=== PATIENT | male | born 1970 | race Caucasian/White ===

== ENCOUNTER 2016-12-24 11:48 | Emergency (ER) | payer BC ==
[~2016-12-24] VITALS: Ht 177.8 cm; Wt 88.5 kg
[2016-12-24] MEDS ORDERED: IV RINGERS,LACTATED 1000ML 1,000 ML IV SCH (12:10)
[2016-12-24] MEDS ORDERED: HYDROmorphone 2 MG/ML VIAL IV/SQ PRN (12:15)
[2016-12-24] MEDS ORDERED: KETOROLAC 15 MG/ML VIAL. IV ONE (12:15)
--- NOTE | 2016-12-24 12:26 | ED.ADGEN ---
Past Medical History Past Medical History: Hypertension Additional Past Medical Histor: kidney stone Past Surgical History: No Surgical History Alcohol Use: Rarely Drug Use: None Adult General Chief Complaint Chief Complaint: FLANK PAIN HPI HPI Patient is a 46 year old man, history of hypertension, renal calculi, who passed a kidney stone one year ago, who presents to the emergency department with complaint of 2 days of right flank pain that is now associated right right abdominal pain. Patient denies any pain with urination, any hematuria. Denies any fevers or chills, complains of nausea but no vomiting. States the pain is waxing and waning, sharp and cramping, did use a single dose ibuprofen shortly before coming to the ED. Currently pain is coming and going in waves as stated. Denies any injuries, any chest pain or shortness of breath, any weakness in this or tingling, states that the symptoms he is experiencing currently are the same that he experienced last year when he passed a kidney stone. He states he did not seek medical evaluation during that episode, passed a stone in his urine. Review of Systems Review of Systems Constitutional: Denies fever or chills. [] Eyes: Denies change in visual acuity. [] HENT: Denies nasal congestion or sore throat. [] Respiratory: Denies cough or shortness of breath. [] Cardiovascular: Denies chest pain or edema. [] GI: Right flank pain now progressing to right-sided abdominal pain. : Denies dysuria. [] Musculoskeletal: Denies back pain or joint pain. [] Integument: Denies rash. [] Neurologic: Denies headache, focal weakness or sensory changes. [] Endocrine: Denies polyuria or polydipsia. [] Lymphatic: Denies swollen glands. [] Psychiatric: Denies depression or anxiety. [] Current Medications Current Medications Current Medications Medications (Trade) Dose Ordered Sig/Ender Start Time Stop Time Status Last Admin Dose Admin Ciprofloxacin (Cipro) 500 mg 1X ONCE 12/24/16 15:00 12/24/16 15:01 DC 12/24/16 15:08 500 MG Hydromorphone HCl (Dilaudid) 0.5 mg PRN Q15MIN PRN 12/24/16 12:15 12/24/16 15:31 DC 12/24/16 13:09 0.5 MG Ketorolac Tromethamine (Toradol) 10 mg 1X ONCE 5/17/17 12:15 12/24/16 12:16 DC 12/24/16 13:09 10 MG Ondansetron HCl (Zofran Odt) 4 mg 1X ONCE 12/24/16 14:45 12/24/16 14:50 DC 12/24/16 15:08 4 MG Ondansetron HCl (Zofran) 4 mg 1X ONCE 12/24/16 12:30 12/24/16 12:31 DC 12/24/16 13:08 4 MG Oxycodone/ Acetaminophen (Percocet 7.5/ 325) 1 tab 1X ONCE 12/24/16 14:45 12/24/16 14:50 DC 12/24/16 15:09 1 TAB Ringer's Solution 1,000 ml @ 1,000 mls/hr Q1H 12/24/16 12:10 12/24/16 13:09 DC 12/24/16 13:10 1,000 MLS/HR Tamsulosin HCl (Flomax) 0.4 mg 1X ONCE 12/24/16 14:45 12/24/16 14:50 DC 12/24/16 15:08 0.4 MG Allergies Allergies Allergies Coded Allergies Type Severity Reaction Last Updated Verified Penicillins Allergy Intermediate 12/24/16 Yes Physical Exam Physical Exam Constitutional: Well developed, well nourished, no acute distress, non-toxic appearance. [] HENT: Normocephalic, atraumatic, bilateral external ears normal, oropharynx moist, no oral exudates, nose normal. [] Eyes: PERRLA, EOMI, conjunctiva normal, no discharge. [] Neck: Normal range of motion, no tenderness, supple, no stridor. [] Cardiovascular:Heart rate regular rhythm, no murmur, S1, S2, rubs or gallops. [] Lungs & Thorax: Bilateral breath sounds clear to auscultation, no wheezing, no rhonchi, rales. [] Abdomen: Bowel sounds normal, soft, mild tenderness palpation along the lateral right abdomen, no masses, no pulsatile masses. [] Skin: Warm, dry, no erythema, no rash. [] Back: No tenderness, no CVA tenderness. [] Extremities: No tenderness, no cyanosis, no clubbing, ROM intact, no edema. [] Neurologic: Alert and oriented X 3, normal motor function, normal sensory function, no focal deficits noted. [] Psychologic: Affect normal, judgement normal, mood normal. [] Current Patient Data Vital Signs Vital Signs Date Time Temp Pulse Resp B/P (MAP) Pulse Ox O2 Delivery O2 Flow Rate FiO2 12/24/16 15:09 16 99 Room Air 12/24/16 12:04 97.7 92 156/101 (119) 97.7 Lab Values Laboratory Tests Test 12/24/16 12:35 12/24/16 13:40 White Blood Count 9.2 x10^3/uL (4.0-11.0) Red Blood Count 4.69 x10^6/uL (4.30-5.70) Hemoglobin 13.9 g/dL (13.0-17.5) Hematocrit 40.0 % (39.0-53.0) Mean Corpuscular Volume 85 fL (79-100) Mean Corpuscular Hemoglobin 30 pg (25-35) Mean Corpuscular Hemoglobin Concent 35 g/dL (31-37) Red Cell Distribution Width 14.1 % (11.5-14.5) Platelet Count 319 x10^3/uL (140-400) Neutrophils (%) (Auto) 64 % (31-73) Lymphocytes (%) (Auto) 22 % (24-48) L Monocytes (%) (Auto) 12 % (0-9) H Eosinophils (%) (Auto) 1 % (0-3) Basophils (%) (Auto) 1 % (0-3) Neutrophils # (Auto) 5.9 x10^3uL (1.8-7.7) Lymphocytes # (Auto) 2.0 x10^3/uL (1.0-4.8) Monocytes # (Auto) 1.1 x10^3/uL (0.0-1.1) Eosinophils # (Auto) 0.1 x10^3/uL (0.0-0.7) Basophils # (Auto) 0.1 x10^3/uL (0.0-0.2) Sodium Level 138 mmol/L (136-145) Potassium Level 3.6 mmol/L (3.5-5.1) Chloride Level 103 mmol/L (98-107) Carbon Dioxide Level 29 mmol/L (21-32) Anion Gap 6 (6-14) Blood Urea Nitrogen 23 mg/dL (8-26) Creatinine 1.2 mg/dL (0.7-1.3) Estimated GFR (Cockcroft-Gault) 64.6 BUN/Creatinine Ratio 19 (6-20) Glucose Level 133 mg/dL (70-99) H Calcium Level 8.5 mg/dL (8.5-10.1) Total Bilirubin 0.5 mg/dL (0.2-1.0) Aspartate Amino Transferase (AST) 21 U/L (15-37) Alanine Aminotransferase (ALT) 34 U/L (16-63) Alkaline Phosphatase 61 U/L (46-116) Total Protein 6.7 g/dL (6.4-8.2) Albumin 3.1 g/dL (3.4-5.0) L Albumin/Globulin Ratio 0.9 (1.0-1.7) L Urine Collection Type Unknown Urine Color Yellow Urine Clarity Cloudy Urine pH 6.0 Urine Specific [place] 1.020 Urine Protein Negative mg/dL (NEG-TRACE) Urine Glucose (UA) Negative mg/dL (NEG) Urine Ketones (Stick) Negative mg/dL (NEG) Urine Blood Large (NEG) Urine Nitrite Negative (NEG) Urine Bilirubin Negative (NEG) Urine Urobilinogen Dipstick 1.0 mg/dL (0.2 mg/dL) Urine Leukocyte Esterase Moderate (NEG) Urine RBC 20-40 /HPF (0-2) Urine WBC 1-4 /HPF (0-4) Urine Squamous Epithelial Cells Few /LPF Urine Bacteria Few /HPF (0-FEW) Urine Mucus Mod /LPF Laboratory Tests 12/24/16 12:35 Laboratory Tests 12/24/16 12:35 EKG EKG Not indicated. Radiology/Procedures Radiology/Procedures [][facility] [address] [place] [address] IMAGING REPORT Signed PATIENT: MARLA MORRIS ACCOUNT: [id number] : 1970 LOCATION: ER AGE: 46 SEX: M EXAM STATUS: REG ER ORD. PHYSICIAN: DURAN BLAKE DO REASON: R flank pain/hx kidney stones PROCEDURE: CT ABDOMEN PELVIS WO CONTRAST Examination: CT of the abdomen pelvis without contrast History: History of right-sided pain Comparison: None available Technique: Axial CT images of the abdomen pelvis were performed without contrast. Coronal and sagittal reformats are performed PQRS Compliance Statement: One or more of the following individualized dose reduction techniques were utilized for this examination: 1. Automated exposure control 2. Adjustment of the mA and/or kV according to patient size 3. Use of iterative reconstruction technique Findings: The visualized bibasal lungs grossly appears unremarkable. No evidence of free air identified in the abdomen. The evaluation of the solid organs is limited due to lack of IV contrast. The evaluation of the bowel is limited due to lack of oral contrast. The visualized noncontrasted liver, spleen, adrenals grossly appears unremarkable. The gallbladder is mildly distended. The stomach is mildly distended. The visualized pancreas grossly appears unremarkable. The small bowel is nondilated. Feces and gas noted in the colon. The appendix grossly appears unremarkable. Multiple intrarenal collecting system calculi identified in the bilateral kidneys the largest measuring 5 mm in the bilateral kidneys. Mild right-sided hydronephrosis and hydroureter identified. There is a 6 mm calcification, best visualized on series 2 image #143 could be ureteral calculus the course of the ureter in this region is difficult to assess due to some small bowel loops. Distally the right ureter is collapsed. Urinary bladder is mildly distended. The caliber of the aorta grossly appears unremarkable. No evidence of lytic bony destructive lesion identified. Mild degenerative changes lumbar spine. Impression: 1. Mild right-sided hydronephrosis and hydroureter with minimal surrounding fat stranding. There is a 6 mm calcification, best visualized on series 2 image #143 along the course of the right ureter could be a right ureteral calculus however this region is difficult to assess due to small bowel loops. DICTATED and SIGNED BY: SHIRA POSADAS MD DATE: 12/24/16 7601 CC: DURAN BLAKE DO; UNKNOWN PCP NAME ~ Course & Med Decision Making Course & Med Decision Making Pertinent Labs and Imaging studies reviewed. (See chart for details) Patient received analgesia and antiemetics in the ED along the fluids. He was agreeable to receiving a CT scan of the abdomen and pelvis as he is not previously received and imaging. CT scan revealed a 6 mm stone believe to be in the right ureter, with evidence of hydronephrosis and hydroureter with mild fat stranding. Urine revealed 20-40 RBCs, few bacteria, and 1-4 WBCs. On reevaluation, patient received 1 dose medication, and states he is feeling much better at this time pain is well controlled, he isn't experiencing any nausea or vomiting. He states that he would like to try to go home. I did speak with Dr. Polk of urology, patient's examination, laboratory studies and imaging were reviewed. The CT report does not document exact location of the stone, however based on the patient's response to medication, and lack of fever or other concerning findings, he believes that an outpatient trial be appropriate. I did discuss this with patient, and was eager to try this option. Patient was given ciprofloxacin, Zofran, Percocet, naproxen, and Flomax in the emergency department, he tolerated oral medication without issue. Patient was instructed to contact Dr. Polk's office tomorrow morning after 9:00 in the morning to discuss how he is doing at home, he was also given clear and detailed return instructions with which she voiced understanding and agreement. Patient discharged home in stable condition with his significant other with prescriptions and plan as above. Dragon Disclaimer Dragon Disclaimer This electronic medical record was generated, in whole or in part, using a voice recognition dictation system. Departure Impression: Primary Impression: Renal calculi Additional Impression: Flank pain Disposition: 01 HOME, SELF-CARE Condition: IMPROVED Scripts Ciprofloxacin Hcl (CIPRO) 500 Mg Tablet 1 TAB PO BID, #13 TAB 1 tablet by mouth twice daily for 7 days to treat infection. First dose given in the emergency department. Prov: DURAN BLAKE DO 12/24/16 Tamsulosin Hcl (FLOMAX) 0.4 Mg Cap.er.24h 1 CAP PO DAILY, #5 CAP 11 Refills Prov: DURAN BLAKE DO 12/24/16 Oxycodone/Apap 5-325 (PERCOCET 5-325 MG TABLET) 1 Each Tablet 1-2 TAB PO Q4-6HRS, #20 TAB Prov: DURAN BLAKE DO 12/24/16 Ondansetron Hcl (ZOFRAN) 4 Mg Tablet 1 TAB PO PRN Q6-8HRS, #12 TAB Prov: DURAN BLAKE DO 12/24/16 Naproxen (NAPROSYN) 500 Mg Tablet 500 MG PO BID, #10 TAB Prov: DURAN BLAKE DO 12/24/16 Problem Qualifiers DURAN BLAKE DO December 24, 2016 12:26
[2016-12-24] MEDS ORDERED: ONDANSETRON PF 4 MG/2 ML VIAL. IV ONE (12:30)
[2016-12-24 13:06] LABS: BASO # 0.1 x10^3/uL (0.0-0.2); BASO % 1 % (0-3); EOS % 1 % (0-3); HEMOGLOBIN 13.9 g/dL (13.0-17.5); LYMPH % 22 % (24-48); MEAN CORPUSCULAR HEMOGLOBIN 30 pg (25-35); MEAN CORPUSCULAR HGB CONC 35 g/dL (31-37); MEAN CORPUSCULAR VOLUME 85 fL (79-100); MONO % 12 % (0-9); NEUT % 64 % (31-73); PLATELET COUNT 319 x10^3/uL (140-400); RED BLOOD COUNT 4.69 x10^6/uL (4.30-5.70); RED CELL DISTRIBUTION WIDTH 14.1 % (11.5-14.5); WHITE BLOOD COUNT 9.2 x10^3/uL (4.0-11.0)
--- NOTE | 2016-12-24 13:10 | RAD ---
Examination: CT of the abdomen pelvis without contrast History: History of right-sided pain Comparison: None available Technique: Axial CT images of the abdomen pelvis were performed without contrast. Coronal and sagittal reformats are performed PQRS Compliance Statement: One or more of the following individualized dose reduction techniques were utilized for this examination: 1. Automated exposure control 2. Adjustment of the mA and/or kV according to patient size 3. Use of iterative reconstruction technique Findings: The visualized bibasal lungs grossly appears unremarkable. No evidence of free air identified in the abdomen. The evaluation of the solid organs is limited due to lack of IV contrast. The evaluation of the bowel is limited due to lack of oral contrast. The visualized noncontrasted liver, spleen, adrenals grossly appears unremarkable. The gallbladder is mildly distended. The stomach is mildly distended. The visualized pancreas grossly appears unremarkable. The small bowel is nondilated. Feces and gas noted in the colon. The appendix grossly appears unremarkable. Multiple intrarenal collecting system calculi identified in the bilateral kidneys the largest measuring 5 mm in the bilateral kidneys. Mild right-sided hydronephrosis and hydroureter identified. There is a 6 mm calcification, best visualized on series 2 image #143 could be ureteral calculus the course of the ureter in this region is difficult to assess due to some small bowel loops. Distally the right ureter is collapsed. Urinary bladder is mildly distended. The caliber of the aorta grossly appears unremarkable. No evidence of lytic bony destructive lesion identified. Mild degenerative changes lumbar spine. Impression: 1. Mild right-sided hydronephrosis and hydroureter with minimal surrounding fat stranding. There is a 6 mm calcification, best visualized on series 2 image #143 along the course of the right ureter could be a right ureteral calculus however this region is difficult to assess due to small bowel loops.
[2016-12-24 13:18] LABS: CALCIUM 8.5 mg/dL (8.5-10.1); CREATININE 1.2 mg/dL (0.7-1.3); GFR 64.6; POTASSIUM 3.6 mmol/L (3.5-5.1)
[2016-12-24 13:24] LABS: ALBUMIN 3.1 g/dL (3.4-5.0); ALBUMIN/GLOBULIN RATIO 0.9 (1.0-1.7); TOTAL BILIRUBIN 0.5 mg/dL (0.2-1.0); TOTAL PROTEIN 6.7 g/dL (6.4-8.2)
[2016-12-24 13:46] LABS: BILIRUBIN,URINE NEGATIVE (NEG); GLUCOSE,URINE NEGATIVE (NEG); NITRITE,URINE NEGATIVE (NEG); PROTEIN,URINE NEGATIVE (NEG-TRACE)
[2016-12-24 13:54] LABS: BACTERIA,URINE FEW /HPF (0-FEW); RBC,URINE 20-40 /HPF (0-2); SQUAMOUS EPITHELIAL CELL,UR FEW /LPF
[2016-12-24] MEDS ORDERED: oxyCODONE/APAP 7.5/325 1 TAB TABLET PO ONE (14:45)
[2016-12-24] MEDS ORDERED: ONDANSETRON ODT 4 MG TAB.RAPDIS. PO ONE (14:45)
[2016-12-24] MEDS ORDERED: TAMSULOSIN 0.4 MG CAP.ER.24H. PO ONE (14:45)
[2016-12-24] MEDS ORDERED: CIPROFLOXACIN HCL 250 MG TABLET. PO ONE (15:00)
[2016-12-24] MEDS ORDERED: OXYC-323 PO (15:01)
[2016-12-24] MEDS ORDERED: CIPR500T94 PO (15:01)
[2016-12-24] MEDS ORDERED: ONDA4TAB7 PO (15:01)
[2016-12-24] MEDS ORDERED: TAMS0.4C97 PO (15:01)
[2016-12-24] MEDS ORDERED: NAPR500T PO (15:01)
[2016-12-24 15:02] VITALS: BP 115/86
== END 2016-12-24 15:13 | disposition home or self-care (01) ==
LOC: ER 11:48
DX: N20.0 Calculus of kidney (principal); I10 Essential (primary) hypertension; N13.2 Hydronephrosis with renal and ureteral calculous obstruction; N20.1 Calculus of ureter; Z88.0 Allergy status to penicillin
CPT/HCPCS: 36415; 74176; 80053; 81001; 85027; 87086; 96361; 96374; 96375; 99285; J1170; J1885; J2405; Q0162; J7120

== ENCOUNTER → 2016-12-27 | Outpatient (CLI) | payer BC ==
[2016-12-24 15:02] VITALS: BP 115/86
[~2016-12-27] MED LIST: CIPR500T94 PO; NAPR500T PO; ONDA4TAB7 PO; OXYC-323 PO; TAMS0.4C97 PO
--- NOTE | 2016-12-28 08:48 | RAD ---
Indication: Suspected right renal stones. Technique: KUB is submitted for review. Comparison is a CT from 3 days ago. Findings: Calculi projecting over the left renal shadow are noted corresponding to the stones noted on prior CT. A few punctate calculi projecting over the right renal shadow are also apparent. No definite calculus along the expected course of either ureter is identified. Bowel gas pattern is nonobstructive. There are degenerative changes in the spine. Impression: Calculi projecting over both renal shadows.
== END | disposition home or self-care (01) ==
LOC: RAD 14:55
PROVIDERS: ATTEND Urology
DX: N20.0 Calculus of kidney (principal)
CPT/HCPCS: 74000

== ENCOUNTER 2017-01-05 16:53 | Emergency (ER) | payer BC ==
[~2017-01-05] VITALS: Ht 177.8 cm; Wt 86.2 kg
[2017-01-05 17:27] VITALS: BP 170/96
--- NOTE | 2017-01-05 18:17 | PHYS DOC ---
Past Medical History Past Medical History: Hypertension Additional Past Medical Histor: kidney stone Past Surgical History: No Surgical History Additional Information: 1 PPD Alcohol Use: Occasionally Drug Use: None Adult General Chief Complaint Chief Complaint: SHOULDER INJURY [facility] HPI Patient is a 46 year old male since the emergency department stating that he is having right shoulder pain and discomfort. He states that he felt that he hyperextended it and on Thursday he started having increased pain and discomfort. He states that he's taken aspirin and ibuprofen with no relief. He states that originally he had some numbness and tingling down to his lower arm. He states that he is unable to lift anything with the arm because it causes increased pain in the shoulder. Patient does have equal wool washer feeder bilaterally. Peripheral pulses 2+ cap refill brisk less than 2 seconds.Patient is right hand dominant. Review of Systems Review of Systems Constitutional: Denies fever or chills [] Eyes: Denies change in visual acuity, redness, or eye pain [] HENT: Denies nasal congestion or sore throat [] Respiratory: Denies cough or shortness of breath [] Cardiovascular: No additional information not addressed in HPI [] GI: Denies abdominal pain, nausea, vomiting, bloody stools or diarrhea [] : Denies dysuria or hematuria [] Musculoskeletal: Denies back pain. C/o right shoulder pain Integument: Denies rash or skin lesions [] Neurologic: Denies headache, focal weakness or sensory changes [] Endocrine: Denies polyuria or polydipsia [] Allergies Allergies Allergies Coded Allergies Type Severity Reaction Last Updated Verified Penicillins Allergy Intermediate 12/24/16 Yes Physical Exam Physical Exam Constitutional: Well developed, well nourished, no acute distress, non-toxic appearance. [] HENT: Normocephalic, atraumatic, bilateral external ears normal, oropharynx moist, no oral exudates, nose normal. [] Eyes: PERRLA, EOMI, conjunctiva normal, no discharge. [] Neck: Normal range of motion, no tenderness, supple, no stridor. [] Cardiovascular:Heart rate regular rhythm, no murmur [] Lungs & Thorax: Bilateral breath sounds clear to auscultation [] Skin: Warm, dry, no erythema, no rash. [] Back: No tenderness Extremities: Patient with right shoulder tenderness noted. Patient with full range of motion. Peripheral pulses 2+ cap refill brisk less than 2 seconds. Patient with equal Noted bilaterally. No cyanosis, no clubbing, ROM intact, no edema. [] Neurologic: Alert and oriented X 3, normal motor function, normal sensory function, no focal deficits noted. [] Psychologic: Affect normal, judgement normal, mood normal. [] Current Patient Data Vital Signs Vital Signs Date Time Temp Pulse Resp B/P (MAP) Pulse Ox O2 Delivery O2 Flow Rate FiO2 01/05/17 17:27 98.4 104 18 170/96 (120) 95 Room Air 98.4 EKG EKG [] Radiology/Procedures Radiology/Procedures [] Course & Med Decision Making Course & Med Decision Making Pertinent Labs and Imaging studies reviewed. (See chart for details) Shoulder x-ray was negative per Dr. Weston. Patient will be placed in a sling with recommendations for ibuprofen 800 mg every 8 hours with food stop taking few develop an upset stomach. He'll be provided with orthopedic name and number to follow up with. Signs and symptoms to return back to emergency department as been provided. [] Dragon Disclaimer Dragon Disclaimer This electronic medical record was generated, in whole or in part, using a voice recognition dictation system. Departure Departure Impression: Primary Impression: Right shoulder pain Disposition: HOME, SELF-CARE Condition: STABLE Referrals: UNKNOWN PCP NAME (PCP) Patient Instructions: Arm Sling Use, [id number], Shoulder Pain, [id number] Additional Instructions: Your x-rays were negative for any bony abnormalities. Wear the sling until you follow-up with orthopedic. Take your arm out of the sling 3-4 times a day and do active range of motion. Ibuprofen 800 mg every 8 hours with food stop taking few develop an upset stomach. Ice packs on 20 minutes off 20 minutes several times a day throughout the next 72 hours. Follow-up with orthopedic in the next week. Return back to emergency prior signs symptoms of become worse. ABELINO ALVARES [employer]SL[employer] SPECIALIST January 05, 2017 18:17
--- NOTE | 2017-01-06 08:28 | RAD ---
Indication injury, pain. Internally and externally rotated views of the right shoulder as well as a Y view were obtained. No bony abnormality is seen
== END 2017-01-05 18:26 | disposition home or self-care (01) ==
LOC: ER 16:53
DX: M25.511 Pain in right shoulder (principal); I10 Essential (primary) hypertension; F17.200 Nicotine dependence, unspecified, uncomplicated; Z87.442 Personal history of urinary calculi; Z88.0 Allergy status to penicillin
CPT/HCPCS: 73030; 99284

== ENCOUNTER 2017-07-20 16:04 | Emergency (ER) | payer BC ==
[~2017-07-20] VITALS: Ht 177.8 cm; Wt 81.6 kg
[~2017-07-20 16:04] MED LIST changes: +NAPR-683 PO; -NAPR500T PO
[2017-07-20 16:32] LABS: BILIRUBIN,URINE NEGATIVE (NEG); GLUCOSE,URINE NEGATIVE (NEG); NITRITE,URINE NEGATIVE (NEG); PROTEIN,URINE 100 mg/dL (NEG-TRACE); UROBILINOGEN,URINE 0.2 mg/dL (0.2 mg/dL)
[2017-07-20 16:40] LABS: BACTERIA,URINE FEW /HPF (0-FEW); SPERM,URINE PRESENT /HPF; WBC,URINE >40 /HPF (0-4)
--- NOTE | 2017-07-20 17:02 | PHYS DOC ---
Past Medical History Past Medical History: Hypertension Additional Past Medical Histor: kidney stone Past Surgical History: No Surgical History Alcohol Use: Occasionally Drug Use: None Adult General Chief Complaint Chief Complaint: TESTICULAR PAIN OR INJURY HPI HPI Patient is a 46 year old male who presents with four-day history of mild to moderate right scrotal swelling and tenderness with some cloudy urine and slight dysuria and frequency; denies fever or history of STDs; normal bowel movements no abdominal pain. Review of Systems Review of Systems Constitutional: Denies fever or chills [] Eyes: Denies change in visual acuity, redness, or eye pain [] HENT: Denies nasal congestion or sore throat [] Respiratory: Denies cough or shortness of breath [] Cardiovascular: No additional information not addressed in HPI [] GI: Denies abdominal pain, nausea, vomiting, bloody stools or diarrhea [] : Denies dysuria or hematuria [] Musculoskeletal: Denies back pain or joint pain [] Integument: Denies rash or skin lesions [] Neurologic: Denies headache, focal weakness or sensory changes [] Endocrine: Denies polyuria or polydipsia [] All other systems were reviewed and found to be within normal limits, except as documented in this note. Current Medications Current Medications Current Medications Medications (Trade) Dose Ordered Sig/Ender Start Time Stop Time Status Last Admin Dose Admin Azithromycin (Zithromax) 1,000 mg 1X ONCE 07/20/17 17:15 07/20/17 17:16 DC 07/20/17 17:11 1,000 MG Ceftriaxone Sodium (Rocephin Im) 250 mg 1X ONCE 07/20/17 17:15 07/20/17 17:16 DC 07/20/17 17:11 250 MG Allergies Allergies Allergies Coded Allergies Type Severity Reaction Last Updated Verified Penicillins Allergy Intermediate 12/24/16 Yes Physical Exam Physical Exam Constitutional: Well developed, well nourished, no acute distress, non-toxic appearance. [] HENT: Normocephalic, atraumatic, bilateral external ears normal, oropharynx moist, no oral exudates, nose normal. [] Eyes: PERRLA, EOMI, conjunctiva normal, no discharge. [] Neck: Normal range of motion, no tenderness, supple, no stridor. [] Cardiovascular:Heart rate regular rhythm, no murmur [] Lungs & Thorax: Bilateral breath sounds clear to auscultation [] Abdomen: Bowel sounds normal, soft, no tenderness, no masses, no pulsatile masses. Circumcised; right hemiscrotum minimal tenderness to palpation over the epididymis; no erythema or induration. Normal lie and positive cremasteric reflex my: No inguinal hernia[] Skin: Warm, dry, no erythema, no rash. [] Back: No tenderness, no CVA tenderness. [] Extremities: No tenderness, no cyanosis, no clubbing, ROM intact, no edema. [] Neurologic: Alert and oriented X 3, normal motor function, normal sensory function, no focal deficits noted. [] Psychologic: Affect normal, judgement normal, mood normal. [] Current Patient Data Vital Signs Vital Signs Date Time Temp Pulse Resp B/P (MAP) Pulse Ox O2 Delivery O2 Flow Rate FiO2 07/20/17 17:15 105 16 135/90 (105) 97 Room Air 07/20/17 16:15 98.2 98.2 Lab Values Laboratory Tests Test 07/20/17 16:15 Urine Collection Type Unknown Urine Color Yellow Urine Clarity Cloudy Urine pH 6.0 Urine Specific [place] 1.025 Urine Protein 100 mg/dL (NEG-TRACE) Urine Glucose (UA) Negative mg/dL (NEG) Urine Ketones (Stick) Negative mg/dL (NEG) Urine Blood Moderate (NEG) Urine Nitrite Negative (NEG) Urine Bilirubin Negative (NEG) Urine Urobilinogen Dipstick 0.2 mg/dL (0.2 mg/dL) Urine Leukocyte Esterase Moderate (NEG) Urine RBC 11-20 /HPF (0-2) Urine WBC >40 /HPF (0-4) Urine Bacteria Few /HPF (0-FEW) Urine Mucus Mod /LPF Urine Sperm Present /HPF EKG EKG [] Radiology/Procedures Radiology/Procedures [] Course & Med Decision Making Course & Med Decision Making Pertinent Labs and Imaging studies reviewed. (See chart for details) [Urinalysis positive for UTI. Patient is declining ultrasound of the scrotum and understands risks including but not limited to missed abscess, tumor, or torsion for example. Treated with IM Rocephin and a gram of Zithromax and written a prescription for Cipro.] Dragon Disclaimer Dragon Disclaimer This electronic medical record was generated, in whole or in part, using a voice recognition dictation system. Departure Departure Impression: Primary Impression: Epididymitis, right Additional Impression: Urinary tract infection Disposition: HOME, SELF-CARE Condition: STABLE Referrals: UNKNOWN PCP NAME (PCP) Patient Instructions: Epididymitis, Urinary Tract Infection Scripts Ciprofloxacin Hcl (CIPRO) 500 Mg Tablet 1 TAB PO BID, #20 TAB Prov: NOLA HAWKINS MD 07/20/17 Problem Qualifiers NOLA HAWKINS MD Jul 20, 2017 17:01
[2017-07-20] MEDS ORDERED: CIPR500T94 PO (17:04)
[2017-07-20 17:15] VITALS: BP 135/90
[2017-07-20] MEDS ORDERED: AZITHROMYCIN 250 MG TABLET. PO ONE (17:15)
[2017-07-20] MEDS ORDERED: cefTRIAXone IM 250 MG VIAL IM ONE (17:15)
== END 2017-07-20 17:18 | disposition home or self-care (01) ==
LOC: ER 16:04
DX: N45.1 Epididymitis (principal); N39.0 Urinary tract infection, site not specified; I10 Essential (primary) hypertension; Z87.442 Personal history of urinary calculi; Z88.0 Allergy status to penicillin
CPT/HCPCS: 81001; 96372; 99283; J0696; Q0144

== ENCOUNTER → 2019-06-27 | Outpatient (CLI) | payer BC ==
[~2019-06-27] MED LIST changes: -OXYC-323 PO; +OXYC1TAB15 PO
--- NOTE | 2019-06-27 15:48 | KCIC ---
EXAM: Carotid Doppler sonogram. HISTORY: Left carotid bruit. Preoperative evaluation. TECHNIQUE: Garcia scale and color Doppler sonographic evaluation of the neck with spectral waveform analysis was performed and static images are submitted for review. FINDINGS: There is mild atherosclerotic plaque within the carotid bifurcations. The peak systolic velocity within the right common carotid artery is 76 cm/sec. The peak systolic velocity within the right internal carotid artery is 91 cm/sec and the end diastolic velocity within the right internal carotid artery is 39 cm/sec. The right ICA/CCA ratio is 1.19. The peak systolic velocity within the left common carotid artery is 1 heart and 41 cm/sec. The peak systolic velocity within the left internal carotid artery is 77 cm/sec and the end diastolic velocity within the left internal carotid artery is 36 cm/sec. The left ICA/CCA ratio is 0.90. There is normal antegrade flow within both vertebral arteries. IMPRESSION: No Doppler evidence of hemodynamically significant stenosis within the internal carotid arteries or vertebral arteries. PQRS Compliance Statement - Stenosis calculations for CT, MR and conventional angiography are based upon measurement of the distal ICA diameter in accordance with the NASCET methodology. Stenosis calculations for carotid ultrasound studies are derived from validated velocity criteria which are known to correlate with the NASCET methodology. Electronically signed by: Sabrina Conklin MD (06/27/2019 3:46 PM) [place] [id number]
== END | disposition home or self-care (01) ==
LOC: KCIC US 13:40
PROVIDERS: ATTEND Family Medicine
DX: Z01.818 Encounter for other preprocedural examination (principal); I65.23 Occlusion and stenosis of bilateral carotid arteries
CPT/HCPCS: 93880

== ENCOUNTER 2019-10-05 08:43 | Day surgery (SDC) | payer BC ==
[~2019-10-05] VITALS: Ht 180.3 cm; Wt 94.5 kg
[2019-10-05] MEDS: IV RINGERS,LACTATED 1000ML 1,000 ML IV SCH ×2 (07:00→11:33)
[~2019-10-05 08:43] MED LIST changes: +HYDROmorphone 2 MG/ML VIAL IV PRN; +LIDOCAINE 1% PF 2 ML VIAL. ID PRN; +MORPHINE SULFATE 2 MG/ML VIAL. IV PRN; +PROCHLORPERAZINE 10 MG/2 ML VIAL. IV PRN; +VANCOMYCIN 1GM IVPB FOR OMNI 250 ML IV PRN; +fentaNYL PF VIAL 100 MCG/2 ML VIAL IV PRN
[2019-10-05] MEDS ORDERED: LIDOCAINE 2% PF 5 ML VIAL. ONE (09:09)
[2019-10-05] MEDS ORDERED: ONDANSETRON PF 4 MG/2 ML VIAL. ONE (09:09)
[2019-10-05] MEDS ORDERED: PROPOFOL 20 ML IV ONE (09:09)
[2019-10-05] MEDS ORDERED: DEXAMETHASONE SOD PHOS 4 MG/ML VIAL ONE ×2 (09:09→10:57)
[2019-10-05] MEDS ORDERED: MIDAZOLAM HCL/PF 2 MG/2 ML VIAL. ONE (09:10)
[2019-10-05] MEDS ORDERED: fentaNYL PF VIAL 100 MCG/2 ML VIAL ONE (09:10)
[2019-10-05] MEDS ORDERED: BUPIVACAINE-EPI 0.5%-1:200000 MPF 30 ML VIAL. ONE (09:57)
[2019-10-05] MEDS ORDERED: ePHEDrine PF IN SALINE 50 MG/10 ML SYRINGE. IV ONE (10:57)
[2019-10-05] MEDS ORDERED: SEVOFLURANE 31 TO 60 MINUTES. IH ONE (10:57)
[2019-10-05] MEDS ORDERED: PHENYLEPHRINE in 0.9% NACL PF 1 MG/10 ML SYRINGE. IV ONE (10:57)
[2019-10-05] MEDS ORDERED: FAMOTIDINE 20 MG/2 ML VIAL ONE (10:57)
[2019-10-05] MEDS ORDERED: diphenhydrAMINE 50 MG/ML VIAL ONE (10:57)
[2019-10-05] MEDS ORDERED: VASOPRESSIN 20 UNIT/ML VIAL. ONE (10:57)
[2019-10-05] MEDS ORDERED: OXYC1TAB19 PO (11:21)
--- NOTE | 2019-10-05 11:21 | DISCH ---
DISCHARGE INSTRUCTIONS Condition on Discharge Condition on Discharge: Stable Activity After Discharge Activity Instructions for Disc: Activity as tolerated, Avoid exertion Driving Instructions after Dis: Do not drive (3-4 days) Diet after Discharge Diet after Discharge: Regular Wound Incision Care Wound/Incision Care: Ice to area for comfort Other wound/incision instructi: may shower Thursday Follow-Up Follow up with: Jaden next week DULCE QUIROGA MD Oct 05, 2019 11:21
--- NOTE | 2019-10-05 11:26 | PDOC ---
BRIEF OPERATIVE NOTE Date: Oct 05, 2019 Pre-Op Diagnosis right inguinal hernia Post-Op Diagnosis same, indirect Procedure Performed repair with mesh Surgeon Jaden [employer] Moody CHOUDHURY Anesthesia Type: General (LMA) Blood Loss 10cc IV Fluid 700cc Specimens Obtained none Findings indirect sack with adequate inguinal floor Complications none Operative Note Wk # [id number] DULCE QUIROGA MD Oct 05, 2019 11:26
[2019-10-05] MEDS ORDERED: oxyCODONE/APAP 7.5/325 1 TAB TABLET PO ONE (12:30)
--- NOTE | 2019-10-05 12:34 | OP ---
DATE OF SURGERY: 10/05/2019 PREOPERATIVE DIAGNOSIS: Right inguinal hernia. POSTOPERATIVE DIAGNOSIS: Right inguinal hernia, indirect. PROCEDURE: Repair with mesh. SURGEON: Kyle Quiroga MD [employer]ODUCTS ASSEMBLER: MACEY Velasquez ANESTHESIA: General LMA. BLOOD LOSS: 10. INTRAVENOUS FLUIDS: 700. DESCRIPTION OF PROCEDURE: The patient brought to the operating suite, given a general LMA and the right groin was prepped and draped in usual sterile fashion. A 0.5% Marcaine with epinephrine was used to infiltrate the skin and subcutaneous tissue along the incision line. Incision made and dissection carried down to the external oblique fascia. Bleeders were cauterized or tied as identified. The fascia was opened in the direction of its fibers, extended through the external ring. Cord swept off the pubis. Terril drain placed around it and dissection carried back to the internal ring where a large indirect sac was identified, skeletonized and reduced. This was held in reduction with a medium plug of Phasix mesh, tacked with 2-0 PDS, taking care to avoid injury to adjacent vessels. A keyhole patch was then fashioned and placed over the floor of the canal. The slit closed with a single 2-0 PDS stitch. When hemostasis was present and a correct sponge count obtained, the cord was returned to its normal anatomical position. External oblique fascia closed over a running fashion with 3-0 Vicryl. Subcutaneous approximated with 3-0 Vicryl, skin closed with subcuticular 4-0 Monocryl. Steri-Strips and sterile dressings applied. Prior to emergence from anesthesia, digital rectal exam failed to reveal evidence of prostatic enlargement or nodularity. The patient was awakened from his anesthetic and taken to the recovery room in satisfactory condition. KYLE QUIROGA MD DR: LEVON/james JOB#: [id number] / [id number]
[2019-10-05 12:35] VITALS: BP 131/70
== END 2019-10-05 13:20 | disposition home or self-care (01) ==
LOC: SURG 08:43
PROVIDERS: ATTEND Surgery
DX: K40.90 Unilateral inguinal hernia, without obstruction or gangrene, not specified as recurrent (principal)
CPT/HCPCS: 49505; A7015; C1781; J0171; J1100; J1200; J2001; J2250; J2370; J2405; J2704; J3010; J3370; J3490; J7120

== ENCOUNTER 2020-04-25 13:24 | Emergency (ER) | payer BC ==
[~2020-04-25] VITALS: Ht 180.3 cm; Wt 93.0 kg
[~2020-04-25 13:24] MED LIST changes: -HYDROmorphone 2 MG/ML VIAL IV PRN; -LIDOCAINE 1% PF 2 ML VIAL. ID PRN; -MORPHINE SULFATE 2 MG/ML VIAL. IV PRN; +OXYC1TAB19 PO; -PROCHLORPERAZINE 10 MG/2 ML VIAL. IV PRN; -VANCOMYCIN 1GM IVPB FOR OMNI 250 ML IV PRN; -fentaNYL PF VIAL 100 MCG/2 ML VIAL IV PRN
[2020-04-25 16:25] VITALS: BP 131/83
[2020-04-25] MEDS ORDERED: CLIN150C14 PO (16:26)
--- NOTE | 2020-04-25 16:31 | PHYS DOC ---
Past Medical History Past Medical History: Hypertension Additional Past Medical Histor: kidney stone Past Surgical History: No Surgical History Smoking Status: Current Every Day Smoker Alcohol Use: Occasionally Drug Use: None General Adult EDM: Chief Complaint: FACE PROBLEM HPI: HPI: 49-year-old male past medical history of hypertension, presents the ED with complaints of swelling to the left side of his face that started this morning- reports his eye was swollen shut but this is improved since this morning. Patient states he had a bump on his left upper forehead that started 2 days ago and states he squeezed pus out of it. No known history of MRSA. Is not on any steroids, is not immunocompromised. 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 Cannot recall his last tetanus. Review of Systems: Review of Systems: Constitutional: Denies fever or chills. [] Eyes: Denies change in visual acuity or blurry vision HENT: Denies nasal congestion or sore throat or dental pain or oral/neck swelling Respiratory: Denies cough or shortness of breath. [] Cardiovascular: Denies chest pain or edema. [] GI: Denies abdominal pain, nausea, vomiting, or diarrhea. [] : Denies dysuria. [] Musculoskeletal: Denies back pain or joint pain. [] Integument: Denies rash. [] Neurologic: Denies headache, focal weakness or sensory changes. [] Endocrine: Denies polyuria or polydipsia. [] Lymphatic: Denies swollen glands. [] Psychiatric: Denies depression or anxiety. [] Heart Score: Risk Factors: Risk Factors: DM, Current or recent (<one month) smoker, HTN, HLP, family history of CAD, obesity. Risk Scores: Score 0 - 3: 2.5% MACE over next 6 weeks - Discharge Home Score 4 - 6: 20.3% MACE over next 6 weeks - Admit for Clinical Observation Score 7 - 10: 72.7% MACE over next 6 weeks - Early Invasive Strategies Allergies: Allergies: Allergies Coded Allergies Type Severity Reaction Last Updated Verified Penicillins Allergy Intermediate 10/05/19 Yes Physical Exam: PE: Constitutional: Well developed, well nourished, no acute distress, non-toxic appearance HENT: Normocephalic, atraumatic, bilateral external ears normal, normal tympanic membranes, oropharynx moist, no oral exudates, no oropharyngeal erythema or exudates, no dental pain or lesions, 3x3cm of erythema over left upper forehead near scalp line -center of erythema with granulation tissue, no crepitus or fluctuance, region is indurated, swelling/edema and erythema over left cheek and lower/upper eyelids Eyes: EOMI, conjunctiva normal, no discharge. [] Neck: Normal range of motion, no tenderness, supple, no stridor. [] Cardiovascular:Heart rate regular rhythm, no murmur [] Lungs & Thorax: Bilateral breath sounds clear to auscultation [] Skin: Warm, dry, no secondary lesions Extremities: No tenderness, ROM intact, no edema. [] Neurologic: Alert and oriented X 3, no focal deficits noted. [] Psychologic: Affect normal, judgement normal, mood normal. [] EKG: EKG: [] Radiology/Procedures: Radiology/Procedures: [] Course & Med Decision Making: Course & Med Decision Making Pertinent Labs and Imaging studies reviewed. (See chart for details) Concern for left-sided preseptal cellulitis with no headache, sore throat, earache, blurry vision, posterior eye pain or fever. Patient also with 3 x 3 cm area of erythema and induration over left upper forehead at scalp line-could represent a ruptured abscess with no underlying induration. Patient's tetanus is updated in ED. Due to penicillin allergy was prescribed clindamycin. Courage PMD follow-up in 24 to 48 hours for wound check. Strict ED return precautions were given for fever, neck stiffness, headache, photophobia, pain behind the eye, neck swelling, dyspnea or any worsening infection/symptoms. Encouraged urgent outpatient follow-up with PMD. Life-threatening processes were considered but are low suspicion at this time, given history and physical exam. Pt was educated on all prescription medications and adverse effects. All patient's questions were answered and pt was stable at time of discharge. Differential includes erythema multiforme, paul-isrrael syndrome, toxic epidermal necrolysis, staphylococcal scalded skin syndrome, necrotizing fasciitis/myositis/cellulitis, purpura fulminans, heparin or warfarin induced skin necrosis, drug rash, disseminated intravascular coagulation, disseminated gonococcal disease, vasculitis, septicemia, petechial disorder or coagulopathy, I spoken with the patient and her caregivers. I explained the patient's condition, diagnoses and treatment plan based on the information available to me at this time. I have answered the patient and her caregiver's questions and addressed any concerns. The patient and her caregivers have a good understanding of patient's diagnosis, condition and treatment plan as can be expected at this point. Vital signs have been stable. Patient's condition is stable and appropriate for discharge from the emergency department. Patient will pursue further outpatient evaluation with primary care physician or other designated or consulting physician as outlined in the discharge instru ctions. The patient and/or caregivers are agreeable to this plan of care and follow-up instructions have been explained in detail. The patient and/or caregivers have received these instructions in written form and have expressed an understanding of the discharge instructions. The patient and/or caregivers are aware that any significant change of condition or worsening of symptoms should prompt immediate return to this or the closest emergency department or call to 911. Jacob Disclaimer: Jacob Disclaimer: This electronic medical record was generated, in whole or in part, using a voice recognition dictation system. Departure Departure Impression: Primary Impression: Facial cellulitis Additional Impressions: Need for [id number] (Tdap) vaccine Facial abscess Disposition: 01 HOME, SELF-CARE Condition: STABLE Referrals: CHARITO GROSS MD (PCP) followup in 24-48 hours Patient Instructions: Abscess, Care After, Periorbital Cellulitis, Wound Care, [id number] Scripts Clindamycin Hcl (CLINDAMYCIN HCL) 150 Mg Capsule 3 CAP PO QID for 10 Days, #120 CAP Prov: GREGORY INFANTE DO 04/25/20 Justicifation of Admission Dx: Justifications for Admission: Justification of Admission Dx: N/A GREGORY INFANTE DO Apr 25, 2020 16:31
[2020-04-25] MEDS ORDERED: DIPH,PERTUSS(ACELL),TET VAC/PF 0.5 ML SYRINGE. VAX IM ONE (16:45)
== END 2020-04-25 17:13 | disposition home or self-care (01) ==
LOC: ER 13:24
DX: L02.01 Cutaneous abscess of face (principal); L03.211 Cellulitis of face; I10 Essential (primary) hypertension; F17.200 Nicotine dependence, unspecified, uncomplicated; Z87.442 Personal history of urinary calculi; Z88.0 Allergy status to penicillin
CPT/HCPCS: 90471; 90715; 99283